=== PATIENT | female | born 1990 | race Caucasian/White ===

== ENCOUNTER 2016-12-23 00:04 | Inpatient (IN) | payer BC ==
[~2016-12-23] VITALS: Ht 165.1 cm; Wt 86.6 kg
[~2016-12-23 00:04] MED LIST: LR 1,000 ML IV SCH; OXYTOCIN/NORMAL SALINE 1,000 ML IV SCH
[2016-12-23] MEDS ORDERED: TERBUTALINE SULFATE 1 MG/ML VIAL SUBCUT ONE (00:15)
[2016-12-23] MEDS ORDERED: NALBUPHINE HCL 10 MG/ML AMP IVP PRN (00:15)
[2016-12-23 00:46] VITALS: BP_SYST 121
[2016-12-23 01:09] LABS: HEMATOCRIT 32.7 % (36-48); HEMOGLOBIN 11.1 g/dL (12.0-16.0); MEAN CORPUSCULAR HEMOGLOBIN 29 pg (27-31); MEAN CORPUSCULAR HGB CONC 34 % (32-36); MEAN CORPUSCULAR VOLUME 84 fL (79.0-98.0); PLATELET COUNT (AUTO) 197 K/uL (130-430); RED BLOOD CELL COUNT(AUTO) 3.89 MIL/uL (4.2-6.2); RED CELL DISTRIBUTION WIDTH 13.3 % (9.0-15.0); WHITE BLOOD COUNT (AUTO) 12.6 K/uL (4.8-10.8)
[2016-12-23 01:34] LABS: BAND % (MANUAL) 4 % (0-6); BASOPHILS % (MANUAL) 0 % (0-2); EOSINOPHILS % (MANUAL) 0 % (0-7); LYMPHOCYTES % (MANUAL) 25 % (20-46); MONOCYTES % (MANUAL) 4 % (0-11)
[2016-12-23] MEDS ORDERED: FENT2mCg/mL-ROPIVA0.2%/NS EPID 150 ML EP ONE (09:03)
[2016-12-23] MEDS ORDERED: FENT2mCg/mL-ROPIVA0.2%/NS EPID 150 ML EP SCH (09:45)
[2016-12-23] MEDS ORDERED: ePHEDrine sulfate 50 MG/ML VIAL IVP PRN (09:45)
[2016-12-23] MEDS ORDERED: LR 500 ML IV ONE (09:45)
[2016-12-23] MEDS ORDERED: OXYTOCIN/NORMAL SALINE 1,000 ML IV SCH (12:16)
[2016-12-23] MEDS ORDERED: OXYTOCIN/NORMAL SALINE 1,000 ML IV ONE (12:16)
[2016-12-23] MEDS ORDERED: ANUSOL 1 EA SUPP.RECT (PREPARATION H) RC PRN (12:30)
[2016-12-23] MEDS ORDERED: GLYCERIN/WITCH HAZEL (TUCKS PADS) TP PRN (12:30)
[2016-12-23] MEDS ORDERED: ACETAMINOPHEN 325 MG TABLET PO PRN (12:30)
[2016-12-23] MEDS ORDERED: METHYLERGONOVINE MALEATE 0.2 MG TABLET PO PRN (12:30)
[2016-12-23] MEDS ORDERED: OXYCODONE/ACETAMINOPHEN 5-325 TABLET PO PRN ×2 (12:30)
[2016-12-23] MEDS ORDERED: LANOLIN 7 GM OINT. TP PRN (12:30)
[2016-12-23] MEDS ORDERED: HYDROCORTISONE 0.5%, 28.35 GM TOPICAL CREAM TP PRN (12:30)
[2016-12-23] MEDS ORDERED: SENNOSIDES/DOCUSATE SODIUM 1 TAB TABLET(SENOKOT-S) PO PRN (12:30)
[2016-12-23] MEDS ORDERED: DERMOPLAST SPRAY TP PRN (12:30)
[2016-12-23] MEDS ORDERED: MEASLES,MUMPS&RUBELLA VACC/PF 12500 UNIT/0.5 ML VIAL SUBQ PRN (12:30)
[2016-12-23] MEDS ORDERED: DOCUSATE SODIUM 100 MG CAPSULE PO PRN (12:30)
[2016-12-23] MEDS ORDERED: RHO(D) IMMUNE GLOBULIN/MALTOSE 1500 UNITS/1.3 ML (WINHRO) IM PRN (12:30)
[2016-12-23] MEDS: IBUPROFEN 600 MG TABLET PO SCH ×2 (12:45→23:11)
[2016-12-23] MEDS ORDERED: TEMAZEPAM 15 MG CAPSULE PO PRN (21:00)
[2016-12-24] MEDS: IBUPROFEN 600 MG TABLET PO SCH ×2 (06:56→11:58)
[2016-12-24 08:28] LABS: HEMATOCRIT 29.8 % (36-48); HEMOGLOBIN 9.7 g/dL (12.0-16.0)
== END 2016-12-24 13:00 | disposition home or self-care (01) | DRG 775 ==
LOC: SPU 00:04
PROVIDERS: ADMIT Obstetrics & Gynecology; ATTEND Obstetrics & Gynecology
PROC: 10E0XZZ Delivery of Products of Conception, External Approach (ICD-10-PCS; principal; 2016-12-23)
PROC: 3E0S3CZ (ICD-10-PCS; 2016-12-23)
PROC: 00HU33Z Insertion of Infusion Device into Spinal Canal, Percutaneous Approach (ICD-10-PCS; 2016-12-23)
PROC: 3E0234Z Introduction of Serum, Toxoid and Vaccine into Muscle, Percutaneous Approach (ICD-10-PCS; 2016-12-23)
DX: O69.81X0 Labor and delivery complicated by cord around neck, without compression, not applicable or unspecified (principal); Z37.0 Single live birth; Z3A.39 39 weeks gestation of pregnancy; Z23 Encounter for immunization
CPT/HCPCS: 36415; 81002-TC; 85007; 85018-TC; 85027; 86592; 86886; 86900; 86901; J2300; J2590; J3010; J7120